=== PATIENT | female | born 1995 | race Caucasian/White ===

== ENCOUNTER 2023-01-16 19:39 | Emergency (ER) | payer SELFPAY ==
[~2023-01-16] VITALS: Ht 157.5 cm; Wt 57.7 kg
[2023-01-16 19:47] VITALS: BP 120/75
== END 2023-01-16 23:04 | disposition left against medical advice (07) ==
LOC: ER 19:39
DX: Z53.21 Procedure and treatment not carried out due to patient leaving prior to being seen by health care provider (principal)
CPT/HCPCS: 93005; 99281